=== PATIENT | female | born 1990 | race Caucasian/White ===

== ENCOUNTER → 2016-09-01 | Outpatient (CLI) | payer OTHER ==
[~2016-09-01] MED LIST: CIPR-255 PO; IBUP-103 PO; PRENTAB26 PO
[2016-09-01 11:23] LABS: HEMATOCRIT 33.7 % (37-47)
[2016-09-01 11:24] LABS: URINE APPEARANCE CLEAR (CLEAR); URINE BILIRUBIN NEG (NEG); URINE COLOR YELLOW; URINE EPITHELIAL CELL AUTO >30 /lpf (0-5); URINE NITRITE NEG (NEG); URINE SPECIFIC GRAVITY 1.008 (1.000-1.030); UROBILINOGEN NEG (NEG)
[2016-09-01 11:29] LABS: MANUAL MICROSCOPIC REQUIRED? NO; REVIEW REQ? NO
[2016-09-01 11:47] LABS: GTGD 50 Grams
== END | disposition home or self-care (01) ==
LOC: C.LAB1850 09:56
PROVIDERS: ATTEND Obstetrics & Gynecology
DX: Z34.83 Encounter for supervision of other normal pregnancy, third trimester (principal)

== ENCOUNTER → 2016-10-27 | Outpatient (CLI) | payer OTHER | END | disposition home or self-care (01) | LOC: C.LABSPEC 14:49 | PROVIDERS: ATTEND Obstetrics & Gynecology | DX: Z34.83 Encounter for supervision of other normal pregnancy, third trimester (principal) ==

== ENCOUNTER 2016-12-01 13:26 | Inpatient (IN) | payer OTHER ==
[~2016-12-01] VITALS: Ht 167.6 cm; Wt 71.4 kg
[2016-12-01] MEDS ORDERED: LACTATED RINGER'S 1000ML 1,000 ML IV SCH (13:51)
[2016-12-01] MEDS ORDERED: LACTATED RINGER'S 1000ML 1,000 ML IV PRN (13:51)
[2016-12-01] MEDS ORDERED: BUPIVACAINE 0.25% 30 ML VIAL ONE (14:39)
[2016-12-01] MEDS ORDERED: EpHEDrine SULFATE INJ 50 MG/ML AMP ONE (14:39)
[2016-12-01] MEDS ORDERED: FENTANYL CITRATE INJ 50 MCG/1 ML 2 ML VIAL ONE (14:40)
[2016-12-01] MEDS ORDERED: FENTANYL 2MCG/ML ROPIV 1.25MG/ML 100ML BAG EPI ONE (14:40)
[2016-12-01 14:55] LABS: HEMATOCRIT 40.3 % (37-47); MEAN CELL VOLUME 90.8 fL (80-100); MEAN CORPUSCULAR HEMOGLOBIN 30.6 pg (25-34); MEAN CORPUSCULAR HGB CONC 33.7 g/dl (32-36); MEAN PLATELET VOLUME 9.2 fL (7.4-10.4); PLATELET COUNT 211 K/uL (130-400); RED BLOOD COUNT 4.44 M/uL (4.2-5.4); WHITE BLOOD COUNT 12.08 K/uL (4.8-10.8)
[2016-12-01] MEDS ORDERED: NALOXONE HCL INJ 1 MG in SODIUM CHLORIDE 0.9% 1000ML 1,000 ML IV PRN (15:29)
[2016-12-01] MEDS ORDERED: LACTATED RINGER'S 1000ML 500 ML IV PRN (15:29)
[2016-12-01] MEDS ORDERED: DiphenhydrAMINE HCL 50 MG/ML VIAL IV PRN (15:30)
[2016-12-01] MEDS ORDERED: NALOXONE HCL INJ 0.4 MG/1 ML VIAL/CARP IV PRN (15:30)
[2016-12-01] MEDS ORDERED: FENTANYL 2MCG/ML ROPIV 1.25MG/ML 100ML BAG EPI PRN (15:30)
[2016-12-01] MEDS ORDERED: NALBUPHINE HCL INJ 10 MG/ML AMP IV PRN (15:30)
[2016-12-01] MEDS ORDERED: EpHEDrine SULFATE INJ 50 MG/ML AMP IV PRN (15:30)
[2016-12-01 15:39] VITALS: Ht 167.6 cm; Wt 71.4 kg
[2016-12-01] MEDS ORDERED: OXYTOCIN 30 UNITS/500ML NSS IV ONE (16:15)
[2016-12-01] MEDS ORDERED: HYDROCORTISONE ACETATE 25 MG SUPP PR PRN (17:45)
[2016-12-01] MEDS ORDERED: OXYTOCIN 30 UNITS/500ML NSS IV PRN (17:45)
[2016-12-01] MEDS ORDERED: SUPERCREAM 0.870 % 15GM JAR EXT PRN (17:45)
[2016-12-01] MEDS ORDERED: OXYCODONE/ACETAMINOPHEN 5-325 TAB PO PRN (17:45)
[2016-12-01] MEDS ORDERED: BENZOCAINE 20% AER SPR 82.5 GM CAN EXT PRN (17:45)
[2016-12-01] MEDS ORDERED: LANOLIN OINT EXT PRN ×2 (17:45)
--- NOTE | 2016-12-01 18:44 | Anesthesia Procedure Note ---
Anesthesia Epidural Removal Nt Date & Time December 01, 2016 at 18:44 Vital Signs Pain Intensity: 0.0 Notes Mental Status: alert / awake / arousable, participated in evaluation Nausea / Vomiting: adequately controlled Pain: adequately controlled Airway Patency, RR, SpO2: stable & adequate BP & HR: stable & adequate Hydration State: stable & adequate Neuraxial Anesthesia: was administered, sensory block is resolving Anesthetic Complications: no major complications apparent, pt satisfied with anesthetic care Epidural: removed without complications, with tip intact
[2016-12-01 20:45] VITALS: BP 110/71; PULSE 80; TEMP 36.6
[2016-12-01 23:20] VITALS: BP 95/60; PULSE 70; TEMP 36.5
--- NOTE | 2016-12-01 23:49 | DELIVERY SUMMARY ---
DATE OF OPERATION: 12/01/2016 VAGINAL DELIVERY SUMMARY DELIVERY SURGEON: Dr. Myrick. PREDELIVERY DIAGNOSES: 1. A 26-year-old G6, P2-0-3-2, at 41 weeks, 0 days. 2. Spontaneous labor. POSTDELIVERY DIAGNOSIS: Same. ANESTHESIA: Epidural. COMPLICATIONS: None. ESTIMATED BLOOD LOSS: 300 mL. FINDINGS: Viable male , Apgars 8 and 9. Weight pending. Please see nursery notes. No lacerations. DESCRIPTION OF DELIVERY: The patient progressed to complete with epidural analgesia. She then spontaneously vaginally delivered a viable male from the left occiput anterior position. The head delivered. No nuchal cord was noted. The anterior followed by the posterior shoulder were delivered followed by the body. The baby was placed on mother's abdomen and a spontaneous cry was heard. Delayed cord clamping was undertaken. The cord was doubly clamped and cut. Cord blood was obtained. The placenta then was delivered spontaneously, intact with a 3-vessel cord. The Pitocin was given. The uterus became. The uterus and vagina were swept of all clots and debris. The cervix, vagina and perineum were inspected and no lacerations were noted. Sponge and instrument counts were correct x2 at the conclusion of the delivery. The patient and the baby tolerated the delivery well. I attest to the content of the Intraoperative Record and any orders documented therein. Any exceptio ns are noted below.
[2016-12-02 04:40] VITALS: BP 112/68; PULSE 75; TEMP 37
[2016-12-02 06:13] LABS: HEMATOCRIT 35.9 % (37-47)
--- NOTE | 2016-12-02 07:23 | Progress Note ---
Subjective December 02, 2016. Subjective conversation w/ patient, physical exam Ambulation: ambulating normally Voiding: no voiding problems Passing Gas: Yes Diet Tolerance: Regular Diet Lochia: Moderate Feeding Type: Breast Feeding Review of Systems Constitutional: No problem reported Respiratory: No problem reported Cardiac: No problem reported Breast: No problem reported Abdomen: No problem reported Female : No problem reported Objective Vital Signs Date Time Temp Pulse Resp B/P Pulse Ox O2 Delivery O2 Flow Rate FiO2 12/01/16 23:20 36.5 70 18 95/60 12/01/16 23:20 Room Air 12/01/16 20:45 36.6 80 20 110/71 Physical Exam General Appearance: NO APPARENT DISTRESS Respiratory/Chest: no respiratory distress Cardiovascular: regular rate, rhythm Abdomen: non tender, soft Fundus: Firm Extremities: normal inspection Laboratory Results Last 24 Hours Test 12/01/16 14:40 White Blood Count 12.08 K/uL Red Blood Count 4.44 M/uL Hemoglobin 13.6 g/dL Hematocrit 40.3 % Mean Corpuscular Volume 90.8 fL Mean Corpuscular Hemoglobin 30.6 pg Mean Corpuscular Hemoglobin Concent 33.7 g/dl RDW Standard Deviation 45.8 fL RDW Coefficient of Variation 13.8 % Platelet Count 211 K/uL Mean Platelet Volume 9.2 fL Assessment and Plan Post- Day#: 1 Continue Routine Care: PPD#1 doing well. Continue routine care.
[2016-12-02 08:00] VITALS: BP 109/70; PULSE 73; TEMP 37.1
[2016-12-02] MEDS: IBUPROFEN 600 MG TAB PO PRN ×2 (08:23→15:37)
[2016-12-02 12:17] VITALS: BP 94/60; PULSE 62; TEMP 36.3
[2016-12-02 17:00] VITALS: BP 115/70; PULSE 76; TEMP 37
[2016-12-02] MEDS: DOCUSATE SODIUM 100 MG CAP PO SCH (19:35)
[2016-12-02] MEDS ORDERED: BISACODYL 5 MG TABEC PO SCH (20:00)
[2016-12-02 23:35] VITALS: BP 113/69; PULSE 63; TEMP 37.1
[2016-12-03] MEDS: IBUPROFEN 600 MG TAB PO PRN (06:23)
--- NOTE | 2016-12-03 06:39 | Discharge Instructions ---
Discharge Instructions Date of Service December 02, 2016. Admission Reason for Admission: Check Labor Discharge Discharge Diagnosis / Problem: s/p vaginal delivery Discharge Goals Goal(s): Routine recovery after delivery Medications Continue Dispensed Medications: supercream, dermaplast, tucks, lansinoh Activity Recommendations Activity Limitations: as noted below . Instructions / Follow-Up Instructions / Follow-Up ACTIVITY RECOMMENDATIONS: * Gradual return to full activity over the next 2-3 weeks. * No lifting - nothing heavier than baby over the next 2-3 weeks. * Do not engage in vigorous exercise, sexual activity or sports until cleared by your physician. * Do not drive or operate any motorized equipment until cleared by your physician. * You may shower/bathe daily. MEDICATIONS: For discomfort or pain, you may use Acetaminophen (Tylenol), Ibuprofen (Advil), or Naproxen (Aleve) following the package directions. For constipation you may use Colace following the package directions. BREAST CARE: If you are not breast feeding: * Wear a supportive bra 24 hours a day for one to two weeks. * Avoid stimulating your breasts and nipples as much as possible during the first few weeks after delivery. * When taking a shower, have the warm water hit your back, not breasts. * When your breasts feel full, apply ice packs. Usually three to four times a day helps ease the discomfort. * Take a mild pain medication (Tylenol / Motrin) when you are uncomfortable. If breast feeding: * Use breast milk to lubricate nipples. Lansinoh cream may be used for sore nipples. You do not need to remove cream prior to breast feeding. If using a different brand of cream, check the label for directions regarding removal of cream prior to nursing. * Wear a supportive bra. * If having problems with breasts or breast feeding, call a network security consultant or your health care provider. EPISIOTOMY CARE: After delivery, if you have an episiotomy (stitches), the following steps will ease discomfort and aid healing. * For the first 24 hours after delivery, place ice packs next to your episiotomy to help reduce swelling. * After the first 24 hour-period, sitz baths, either portable or in the tub, are suggested. A shower with a shower arm sprayed over the episiotomy may be comforting. * Vicki care should be done after each voiding and bowel movement. Squirt warm water from a plastic bottle over the perineum (region of the body between the anus and urinary opening) and pat dry. * Use Dermoplast to ease discomfort. Shake container. [place] directly over the episiotomy. Place a Tucks on a clean sanitary pad next to your episiotomy. SPECIAL CARE INSTRUCTIONS: When you are discharged from the hospital, it is important for you to follow the instructions listed below: * During the first week at home, you should be able to care for yourself and your baby. In addition, the usual light household activities are encouraged. * Limit your activities to the way you feel. Do not try to clean the house or move furniture. Be sensible. * If you actively engage in sports and have done so up until the time of your delivery, you may resume these activities as soon as you feel able. This may take up to one month or even longer. Use good judgment. * Continue to take your vitamins for at least six weeks after the of your baby. * Your diet need not be limited unless you were on a special diet before your delivery. Breast-feeding mothers need around 2500 calories per day and at least 64-80 ounces of fluid per day (8 to 10 glasses). * You should eat foods from the four major food groups. Crash diets or fad diets are to be avoided. Eating lean meats, fresh fruits and vegetables, low-fat dairy products, high fiber foods and a regular exercise program, will help you get back to your pre- weight without putting your health at risk. * Constipation is sometimes a problem after delivery. Take a mild laxative as needed. If breast feeding, Milk of Magnesia is acceptable to use. You may use a suppository or Fleets enema if no episiotomy. * A daily shower or tub bath is suggested. Be sure to thoroughly and gently dry the perineum. * A bloody vaginal discharge will usually continue until around four weeks post . A small amount of bleeding may continue for as long as six weeks. Vaginal discharge changes from the bright red bleeding after delivery to pink then brownish and finally yellowish-pink before becoming white and disappearing. * Bleeding may increase with activity. Your first period may come in 4-8 weeks. If you are breast feeding, your period may be delayed even longer. * [place] (sex) can begin whenever both you and your partner feel comfortable and do not have any form of genital infection. It is recommended that you wait at least six weeks for internal and external healing to occur. If you have questions, please talk to your health care practitioner. A condom should be used to prevent infection and . * Foreplay, gentle intercourse and lubrication is very important the first several times to prevent pain. A water-based lubricant such as K-Y jelly or Astroglide may be used. * If you have RH negative blood and your baby is RH positive, you will receive RHOGAM by injection prior to discharge. The nurse will give you a card to keep with you that has the date and place that you received RHOGAM after delivery. * During your care, you had a Rubella screen done to check for the presence of rubella antibodies in your blood. If your test was negative, you will receive a Rubella vaccine prior to discharge. This vaccine may cause a fever, soreness at the injection site and flu-like symptoms. If these symptoms persist, notify your health care practitioner. is not advised for one month after a Rubella vaccine. * Verbalizes understanding of car seat law as reviewed with patient nursing. * Car Seat hand-out given and reviewed with patient by nursing. * Shaken baby information reviewed with patient by nursing. Call you doctor if: * Heavy bleeding (saturating several pads an hour) or passing clots the size of your fist. * A fever >101 degrees F (38.3 degrees C) on two occasions four hours apart and /or chills. * Unusual pain in the pelvic or vaginal areas. * "Baby Blues" lasting longer than two weeks. If you have any questions or concerns, call your health care practitioner at . FOLLOW UP VISIT: * Please call the office at to schedule a 6 week examination. It is important you keep this appointment. It is important for you to make arrangements for either yearly or twice yearly check-ups thereafter. Current Hospital Diet Patient's current hospital diet: Regular OB Diet Discharge Diet Recommended Diet: Regular Diet Pending Studies Studies pending at discharge: no Medical Emergencies . Who to Call and When: Medical Emergencies: If at any time you feel your situation is an emergency, please call 311 immediately. . Non-Emergent Contact Non-Emergency issues call your: Critical Care Registered Nurse Call Non-Emergent contact if: you have a fever, temperature is above 101 . . "Provider Documentation" section prepared by Amrit Francois. . VTE Core Measure Inpt VTE Proph given/why not?: Treatment not indicated
--- NOTE | 2016-12-03 06:41 | Progress Note ---
Subjective December 03, 2016. Subjective conversation w/ patient, physical exam, lab review Ambulation: ambulating normally Voiding: no voiding problems Passing Gas: Yes Diet Tolerance: Regular Diet Lochia: Small Feeding Type: Breast Feeding Pain: denies pain Comment: Patient was seen at the bedside. No acute event overnight. Review of Systems Constitutional: No fever Respiratory: No cough, No shortness of breath Cardiac: No chest pain Breast: No breast lump Abdomen: No nausea, No pain, No vomiting Female : No dysuria, No urinary frequency Denies headache Objective Vital Signs Date Time Temp Pulse Resp B/P Pulse Ox O2 Delivery O2 Flow Rate FiO2 12/02/16 23:35 37.1 63 16 113/69 Room Air 12/02/16 23:35 Room Air 12/02/16 17:00 Room Air 12/02/16 17:00 37.0 76 16 115/70 Room Air 12/02/16 12:17 36.3 62 18 94/60 Room Air 12/02/16 08:00 37.1 73 18 109/70 Room Air 12/02/16 07:30 Room Air Physical Exam General Appearance: WELL-APPEARING, WD/WN, NO APPARENT DISTRESS Respiratory/Chest: chest non-tender, lungs clear, normal breath sounds, no respiratory distress Cardiovascular: regular rate, rhythm Abdomen: normal bowel sounds, non tender, soft Fundus: Firm, Relation to Umbilicus (1cm below U) Extremities: non-tender, no pedal edema, no calf tenderness Medications Current Inpatient Medications Medications (Trade) Dose Ordered Sig/Jose F Route Start Time Stop Time Status Last Admin Dose Admin Lactated Ringer's 1,000 ml @ 125 mls/hr Q8H IV 12/01/16 13:51 12/03/16 13:50 12/01/16 14:48 125 MLS/HR Lactated Ringer's (Lr 1000ml) 1,000 ml @ 999 mls/hr Q1H1M PRN IV 12/01/16 13:51 12/31/16 13:50 12/01/16 14:49 999 MLS/HR Oxytocin (Pitocin IV) 30 units UD PRN IV 12/01/16 17:45 12/31/16 17:44 12/01/16 18:19 30 UNITS Benzocaine (Dermoplast Aero Spr) 1 appln PRN PRN EXT 12/01/16 17:45 12/31/16 17:44 Cocaine HCl (Supercream 0.870% Cr) BID PRN EXT 12/01/16 17:45 12/15/16 17:44 Hydrocortisone Acetate (Anusol Hc Supp) 25 mg BID PRN IL 12/01/16 17:45 12/31/16 17:44 Lanolin (Lanolin Oint) PRN PRN EXT 12/01/16 17:45 12/31/16 17:44 Ibuprofen (Motrin Tab) 600 mg Q4H PRN PO 12/01/16 17:45 12/31/16 17:44 12/03/16 06:23 600 MG Oxycodone/ Acetaminophen (Percocet 5-325mg Tab) 1 tab Q4H PRN PO 12/01/16 17:45 12/15/16 17:44 Docusate Sodium (coLACE CAP) 100 mg BID PO 12/01/16 20:00 12/31/16 19:59 12/02/16 19:35 100 MG Assessment and Plan Post- Day#: 2 Continue Routine Care: Resident Physician Supervision Note: I interviewed and examined the patient. Discussed with Dr. Francois and agree with findings and plan as documented in the note. Any exceptions or clarifications are listed here: [None] Documented By: Aster Shine A/P: This is a 26 y/o female, , s/p normal vaginal delivery. She is ambulating and clinically stable to discharge. - Vital signs are reviewed and WNL (Tmax 37.1 ) - Last Hgb 12.1 - Blood type AB+, GBS neg, Rubella Immune - No signs of depression. - Routine care - Discussed resting, feeding, pain control, mastitis, control, follow up in 6 weeks and reasons to call sooner, if necessary. - Continue with pain medication as needed, and continue vitamins. - Encourage breast feeding and educate about breast feeding - Patient understands and keen for home. - Plan to discharge home
[2016-12-03] MEDS: DOCUSATE SODIUM 100 MG CAP PO SCH (08:08)
[2016-12-03 08:15] VITALS: BP 116/76; PULSE 77; TEMP 37.2
[2016-12-03 13:00] VITALS: BP_DIAS 76; PULSE 77; TEMP 37.2
== END 2016-12-03 13:55 | disposition home or self-care (01) | DRG 775 ==
LOC: C.LD 13:26 → C.OPB 13:26 → C.LD 13:52 → C.OPB 13:52 → C.OBG 20:14
PROVIDERS: ADMIT Obstetrics & Gynecology; ATTEND Obstetrics & Gynecology
PROC: 10E0XZZ Delivery of Products of Conception, External Approach (ICD-10-PCS; principal; 2016-12-01)
DX: O48.0 Post-term pregnancy (principal); O26.23 Pregnancy care for patient with recurrent pregnancy loss, third trimester; Z37.0 Single live birth; Z3A.41 41 weeks gestation of pregnancy

== ENCOUNTER 2017-09-18 19:34 | Emergency (ER) | payer OTHER ==
[~2017-09-18] VITALS: Ht 168.9 cm; Wt 56.5 kg
[~2017-09-18 19:34] MED LIST changes: -CIPR-255 PO; -IBUP-103 PO
[2017-09-18 19:45] VITALS: TEMP 36.8; Ht 168.9 cm; Wt 56.5 kg
[2017-09-18] MEDS ORDERED: ONDANSETRON INJ 2 MG/ML 2 ML VIAL IV STA (19:52)
[2017-09-18 20:11] LABS: BASO % 0.2 %; BASO ABS # 0.02 K/uL (0-0.2); EOS % 2.9 %; EOS ABS # 0.24 K/uL (0-0.5); HEMATOCRIT 38.5 % (37-47); HEMOGLOBIN 13.2 g/dL (12.0-16.0); IG# 0.01 K/uL (0.00-0.02); LYMPH % 34.8 %; LYMPH ABS # 2.84 K/uL (1.2-3.4); MEAN CELL VOLUME 88.5 fL (80-100); MEAN CORPUSCULAR HEMOGLOBIN 30.3 pg (25-34); MEAN CORPUSCULAR HGB CONC 34.3 g/dl (32-36); MEAN PLATELET VOLUME 8.9 fL (7.4-10.4); MONO ABS # 0.49 K/uL (0.11-0.59); NEUT ABS # 4.56 K/uL (1.4-6.5); PLATELET COUNT 312 K/uL (130-400); RED CELL DISTRIBUTION WIDTH CV 12.3 % (11.5-14.5); RED CELL DISTRIBUTION WIDTH SD 39.4 fL (36.4-46.3); WHITE BLOOD COUNT 8.16 K/uL (4.8-10.8)
[2017-09-18 20:27] LABS: ALBUMIN 3.9 gm/dl (3.4-5.0); CALCIUM 8.6 mg/dl (8.5-10.1); CREATININE 0.67 mg/dl (0.60-1.20); POTASSIUM 3.2 mmol/L (3.5-5.1)
[2017-09-18 20:30] LABS: TOTAL PROTEIN 7.7 gm/dl (6.4-8.2)
--- NOTE | 2017-09-18 21:20 | DIAGNOSTIC IMAGING REPORT ---
APPENDICEAL ULTRASOUND CLINICAL HISTORY: Right lower quadrant abdominal pain COMPARISON STUDY: No previous studies for comparison. FINDINGS: The appendix was not visualized. There are no evidence of focal fluid collections. IMPRESSION: Nonvisualization the appendix. This examination is therefore nondiagnostic in regards to acute appendicitis Electronically signed by: Zeyad Doherty M.D. 09/18/2017 9:18 PM Dictated Date/Time: 09/18/2017 9:18 PM
--- NOTE | 2017-09-18 21:22 | DIAGNOSTIC IMAGING REPORT ---
ADDENDUM Addendum: The patient was brought back for endovaginal scanning. On endovaginal scanning, neither a yolk sac nor a pole were visualized. Again, ultrasonographic follow-up is recommended to confirm a viable . Electronically signed by: Zeyad Doherty M.D. 09/18/2017 9:56 PM Dictated Date/Time: 09/18/2017 9:55 PM ORIGINAL REPORT ECTOPIC ULTRASOUND CLINICAL HISTORY: Right lower quadrant abdominal pain COMPARISON STUDY: No previous studies for comparison. FINDINGS: The uterus measured 8.7 x 6.2 x 7.3 cm. There is a 7.5 mm gestational sac. No pole or yolk sac was visualized. The right ovary measured 4.2 x 2.3 x 2.5 cm. There is a probable 1.7 cm corpus luteum. The left ovary measured 2.9 x 1.6 x 2 cm. There is no free fluid. The patient refused endovaginal scanning IMPRESSION: 1. 7.5 mm intrauterine gestational sac. No pole or yolk sac was visualized. Ultrasound follow-up is recommended to confirm a viable . 2. The patient refused endovaginal scanning Electronically signed by: Zeyad Doherty M.D. 09/18/2017 9:21 PM Dictated Date/Time: 09/18/2017 9:19 PM
[2017-09-18 22:02] VITALS: BP 116/59; PULSE 82; O2SAT 98
--- NOTE | 2017-09-19 01:33 | EMERGENCY ROOM VISIT NOTE ---
History Report prepared by July: Gm Sosa Under the Supervision of: Dr. Gm Boston M.D. First contact with patient: 19:50 Chief Complaint: ABDOMINAL PAIN Stated Complaint: LOWER RIGHT ABD PAIN History of Present Illness The patient is a 26 year old female who presents to the Emergency Room with complaints of worsening lower abdominal pain located near her naval area that began yesterday. She states that the pain radiates towards her right lower abdomen. She describes the pain as a dull and aching. She states that pain is intermittently sharp as well. Patient states that the pain is worsened with touch. She has associated symptoms of diarrhea and low-grade temperatures. She states her most recent temperature was 99.3. Patient denies vomiting, abnormal vaginal bleeding, or discharge. Pertinent past medical history includes a cholecystectomy in 2012. She denies a history of health problems. She denies any chance of . Source of History: patient Onset: Yesterday Position: abdomen (Lower) Symptom Intensity: moderate Quality: ache, sharp, dull Timing: worsening Modifying Factors (Worsening): other (Touch) Associated Symptoms: + fevers, + diarrhea, No vomiting, No urinary symptoms Note: Patient denies abnormal vaginal discharge and bleeding. Review of Systems See HPI for pertinent positives & negatives. A total of 10 systems reviewed and were otherwise negative. Past Medical & Surgical Medical Problems: (1) Spontaneous onset of labor Surgical Problems: (1) History of cholecystectomy Family History Diabetes mellitus Hypertension Social History Smoking Status: Never Smoker Alcohol Use: none Drug Use: none Marital Status: Housing Status: lives with family Occupation Status: employed Current/Historical Medications No Active Prescriptions or Reported Meds Allergies Coded Allergies: Bacitracin (Verified Allergy, Unknown, ?, 12/01/16) Neomycin (Verified Allergy, Unknown, ?, 12/01/16) Polymyxin B (Verified Allergy, Unknown, ?, 12/01/16) Uncoded Allergies: NARCOTICS (Adverse Reaction, Unknown, Chest discomfort and SOB, 09/25/14) Reported by PT. Physical Exam Vital Signs Date Time Temp Pulse Resp B/P (MAP) Pulse Ox O2 Delivery O2 Flow Rate FiO2 09/18/17 22:02 82 18 116/59 98 Room Air 09/18/17 19:45 36.8 97 18 114/77 98 Room Air Physical Exam Constitutional: Vital signs reviewed. Eyes: Pupils are equal round reactive to light. Conjunctiva are noninjected. ENT: Pharynx is clear without erythema or exudate. Mucous membranes are moist. Neck supple without meningeal signs. Respiratory: Clear to auscultation bilaterally. Breath sounds are equal bilaterally. Cardiovascular: Regular rate and rhythm. No rubs or gallops. GI: Soft, nondistended with tenderness in the right lower quadrant and infraumbilical region. No guarding. Bowel sounds are present. Musculoskeletal: No peripheral edema. No CVA tenderness. Integumentary: No cyanosis. Neurological: The patient is awake and alert. No focal deficits. Psychiatric: Normal affect. Medical Decision & Procedures ER Provider Diagnostic Interpretation: Radiology results as stated below per my review and the radiologist's interpretation: APPENDICEAL ULTRASOUND CLINICAL HISTORY: Right lower quadrant abdominal pain COMPARISON STUDY: No previous studies for comparison. FINDINGS: The appendix was not visualized. There are no evidence of focal fluid collections. IMPRESSION: Nonvisualization the appendix. This examination is therefore nondiagnostic in regards to acute appendicitis Electronically signed by: Zeyad Doherty M.D. 09/18/2017 9:18 PM Dictated Date/Time: 09/18/2017 9:18 PM ECTOPIC ULTRASOUND CLINICAL HISTORY: Right lower quadrant abdominal pain COMPARISON STUDY: No previous studies for comparison. FINDINGS: The uterus measured 8.7 x 6.2 x 7.3 cm. There is a 7.5 mm gestational sac. No pole or yolk sac was visualized. The right ovary measured 4.2 x 2.3 x 2.5 cm. There is a probable 1.7 cm corpus luteum. The left ovary measured 2.9 x 1.6 x 2 cm. There is no free fluid. The patient refused endovaginal scanning IMPRESSION: 1. 7.5 mm intrauterine gestational sac. No pole or yolk sac was visualized. Ultrasound follow-up is recommended to confirm a viable . 2. The patient refused endovaginal scanning Electronically signed by: Zeyad Doherty M.D. 09/18/2017 9:21 PM Dictated Date/Time: 09/18/2017 9:19 PM Laboratory Results 09/18/17 20:00 Red Blood Count 4.35, Mean Corpuscular Volume 88.5, Mean Corpuscular Hemoglobin 30.3, Mean Corpuscular Hemoglobin Concent 34.3, Mean Platelet Volume 8.9, Neutrophils (%) (Auto) 56.0, Lymphocytes (%) (Auto) 34.8, Monocytes (%) (Auto) 6.0, Eosinophils (%) (Auto) 2.9, Basophils (%) (Auto) 0.2, Neutrophils # (Auto) 4.56, Lymphocytes # (Auto) 2.84, Monocytes # (Auto) 0.49, Eosinophils # (Auto) 0.24, Basophils # (Auto) 0.02 09/18/17 20:00 Test 09/18/17 20:00 White Blood Count 8.16 K/uL (4.8-10.8) Red Blood Count 4.35 M/uL (4.2-5.4) Hemoglobin 13.2 g/dL (12.0-16.0) Hematocrit 38.5 % (37-47) Mean Corpuscular Volume 88.5 fL (80-100) Mean Corpuscular Hemoglobin 30.3 pg (25-34) Mean Corpuscular Hemoglobin Concent 34.3 g/dl (32-36) Platelet Count 312 K/uL (130-400) Mean Platelet Volume 8.9 fL (7.4-10.4) Neutrophils (%) (Auto) 56.0 % Lymphocytes (%) (Auto) 34.8 % Monocytes (%) (Auto) 6.0 % Eosinophils (%) (Auto) 2.9 % Basophils (%) (Auto) 0.2 % Neutrophils # (Auto) 4.56 K/uL (1.4-6.5) Lymphocytes # (Auto) 2.84 K/uL (1.2-3.4) Monocytes # (Auto) 0.49 K/uL (0.11-0.59) Eosinophils # (Auto) 0.24 K/uL (0-0.5) Basophils # (Auto) 0.02 K/uL (0-0.2) RDW Standard Deviation 39.4 fL (36.4-46.3) RDW Coefficient of Variation 12.3 % (11.5-14.5) Immature Granulocyte % (Auto) 0.1 % Immature Granulocyte # (Auto) 0.01 K/uL (0.00-0.02) Urine Color YELLOW Urine Appearance CLEAR (CLEAR) Urine pH 5.5 (4.5-7.5) Urine Specific [place] 1.016 (1.000-1.030) Urine Protein NEG (NEG) Urine Glucose (UA) NEG (NEG) Urine Ketones TRACE (NEG) Urine Occult Blood NEG (NEG) Urine Nitrite NEG (NEG) Urine Bilirubin NEG (NEG) Urine Urobilinogen NEG (NEG) Urine Leukocyte Esterase TRACE (NEG) Urine WBC (Auto) 1-5 /hpf (0-5) Urine RBC (Auto) 5-10 /hpf (0-4) Urine Hyaline Casts (Auto) 1-5 /lpf (0-5) Urine Epithelial Cells (Auto) >30 /lpf (0-5) Urine Bacteria (Auto) NEG (NEG) Urine Test POS (NEG) Anion Gap 7.0 mmol/L (3-11) Est Creatinine Clear Calc Drug Dose 113.5 ml/min Estimated GFR () 140.6 Estimated GFR (Non- 121.3 BUN/Creatinine Ratio 15.3 (10-20) Calcium Level 8.6 mg/dl (8.5-10.1) Total Bilirubin 0.9 mg/dl (0.2-1) Direct Bilirubin 0.2 mg/dl (0-0.2) Aspartate Amino Transf (AST/SGOT) 21 U/L (15-37) Alanine Aminotransferase (ALT/SGPT) 25 U/L (12-78) Alkaline Phosphatase 84 U/L (45-117) Total Protein 7.7 gm/dl (6.4-8.2) Albumin 3.9 gm/dl (3.4-5.0) Lipase 93 U/L (73-393) Human Chorionic Gonadotropin, Quant 5480 mIU/mL Laboratory results as reviewed by me. Medications Administered Medications (Trade) Dose Ordered Sig/Jose F Route Start Time Stop Time Status Last Admin Dose Admin Ondansetron HCl (Zofran Inj) 4 mg NOW STAT IV 09/18/17 19:52 09/18/17 20:14 DC 09/18/17 20:04 4 MG ED Course 1944: The patient was evaluated in room C11B. A complete history and physical exam was performed. 1951: Zofran Inj 4mg IV 2004: Patient's test came back positive. Patient states that her last period was 3 weeks ago and it was early. She states that she normally has irregular periods. Patient's CT scan was cancelled. 2131: I reassessed patient I reviewed the test results with her including the ultrasound. The lawn care technician had noted that the patient refused transvaginal ultrasound. The results of the ultrasound showed intrauterine gestational sac but no yolk sac or pole. I did question the patient regarding why she refused the transvaginal ultrasound. She stated to me that she did not refuse the ultrasound. She stated to me that the tech told her that she saw everything that she needed to see and asked her if she wanted to have the transvaginal ultrasound. The patient stated she declined because the tech told her that she saw what she needed to see. I did explain to her that we did need the trans-vaginal ultrasound as an IUP was not established on this exam. I did bring this interaction to the attention of Dr. Doherty the radiology. He stated that in reviewing the ultrasound it did appear that she did have a double decidual sign which likely indicated IUP. The tech called me back and stated that she told the patient that she saw what she needs to see with the transabdominal ultrasound and asked if she wanted to have the transvaginal ultrasound as ordered by myself. The patient declined at that point based on what the tech told her. I explained to the tech that the patient should not be told that the ultrasound was sufficient as we have not established an IUP with the trans-abdominal ultrasound. I requested that she take the patient back for a transvaginal ultrasound. 9: Upon reevaluation, the patient appeared to have improvement of her symptoms. I discussed tonight's findings with her. I informed the patient that she [facility] the next 48 hours for a repeat HCG. She verbalized agreement of the treatment plan. She was discharged home. Medical Decision This is a 26-year-old female who presents with lower abdominal pain. Differential diagnosis includes appendicitis, perforation, abscess, inflammatory bowel disease, irritable bowel syndrome, ectopic , ovarian cyst. I did perform a limited focused review of portions of the patient 's old chart on the electronic medical record. The patient has had no recent pertinent visits to this hospital. Patient's blood type is AB+. I did evaluate the patient as noted above. Patient is presenting with lower abdominal pain. She is tender below the umbilicus toward the right side. IV access was established. She denied any chance of . I did order and personally review the patient's urinalysis as described above. Urinalysis did not show any signs of infection but her urine test was positive. I did order and review the patient's blood work as noted in the electronic medical record. Beta-hCGs over 5400. Her white blood cell count is not elevated. I did order an ultrasound of the abdomen and pelvis. I did review the images myself as well as the radiology report as described above. The right lower quadrant ultrasound was nondiagnostic and the appendix was not visualized. Pelvic ultrasound showed a gestational sac but no definite evidence of IUP. I did talk to the radiologist who stated that he thought he saw a double decidual sign consistent with an IVP. I did discuss the case with the air conditioning mechanic industrial cone sewer who recommended the patient follow-up in 48 hours in the office and have a repeat beta-hCG. I did discuss the test results with the patient. I did explain to her that I could not completely rule out appendicitis but that my current suspicion was low. I did offer to do an MRI of the abdomen pelvis but she and her preferred to wait at this time which I felt was reasonable. She understands that we could not completely rule out appendicitis or ectopic at this time. I therefore told her to have a very low threshold to return should she have any worsening symptoms or develop any new symptoms such as vaginal bleeding or fever. She was otherwise advised to follow-up at 48 hours for repeat serum beta-hCG and follow-up with obstetrics. She was discharged in good condition. Medication Reconcilliation Current Medication List: was personally reviewed by me Blood Pressure Screening Patient's blood pressure: Normal blood pressure Blood pressure disposition: Did not require urgent referral Consults Time Called: 2209 Consulting Physician: Dr. Shine - [facility]EE[facility] Returned Call: [id number] [facility] We discussed the patient and her results. Dr. Shine states that the patient should followup with her in the next 48 hours to get a repeat HCG. The patient will be further evaluated by Dr. Shine. Impression Primary Impression: Abdominal pain during in first trimester Scribe Attestation The scribe's documentation has been prepared under my direct and personally reviewed by me in its entirety. I confirm that the note above accurately reflects all work, treatment, procedures, and medical decision making performed by me. Departure Information Dispostion Home / Self-Care Prescriptions No Active Prescriptions or Reported Meds Referrals No Doctor, Assigned (PCP) Forms HOME CARE DOCUMENTATION FORM, IMPORTANT VISIT INFORMATION Patient Instructions My [facility] Additional Instructions You have been examined and treated today on an emergency basis only. This is not a substitute for, or an effort to provide, complete comprehensive medical care. It is impossible to recognize and treat all injuries or illnesses in a single emergency department visit. It is therefore important that you follow up closely with Dr. Shine of [facility] on Wednesday. Call as soon as possible for an appointment. He will need a repeat beta-hCG blood test. Return for worsening symptoms or if you develop fever, vomiting, vaginal bleeding, lightheadedness or any other concerning symptoms.
== END 2017-09-18 22:32 | disposition home or self-care (01) ==
LOC: C.EDB 19:35 → C.EDC 22:32
DX: O26.891 Other specified pregnancy related conditions, first trimester (principal); R10.31 Right lower quadrant pain; Z3A.00 Weeks of gestation of pregnancy not specified; Z83.3 Family history of diabetes mellitus; Z82.49 Family history of ischemic heart disease and other diseases of the circulatory system; Z88.1 Allergy status to other antibiotic agents; Z88.8 Allergy status to other drugs, medicaments and biological substances; Z88.5 Allergy status to narcotic agent

== ENCOUNTER → 2017-09-20 | Outpatient (CLI) | payer OTHER ==
--- NOTE | 2017-10-15 07:46 | CODING QUERY NO DIAGNOSIS ---
TREATMENT RENDERED WITHOUT A DIAGNOSIS Dr. Shine, To promote full compliance with coding requirements relating to patient care, physician participation is requested in all cases of claim processor uncertainty. Please assist us with providing a diagnosis/symptom for the test(s) below: A diagnosis/symptom was not documented on your Order. A valid diagnosis/symptom is required to bill all insurances. Please remember that we are unable to code a diagnosis of rule out, probable, possible, questionable, or suspected. Tests that require a diagnosis: * BETA HCG QUANTITATIVE DIAGNOSIS: DATE OF SERVICE: 09/20/17 Provider Signature: Date: Thank you Justin Silva [facility] Information Management Once completed, please kindly fax back to [phone] For questions please call [phone]
--- NOTE | 2017-10-20 06:06 | EDITING REQUIRED CODING QUERY ---
TREATMENT RENDERED WITHOUT A DIAGNOSIS Dr. Boston, To promote full compliance with coding requirements relating to patient care, physician participation is requested in all cases of key account director uncertainty. Please assist us with providing a diagnosis/symptom for the test(s) below: A diagnosis/symptom was not documented on your Order. A valid diagnosis/symptom is required to bill all insurances. Please remember that we are unable to code a diagnosis of rule out, probable, possible, questionable, or suspected. Tests that require a diagnosis: * BETA HCG QUANTITATIVE DIAGNOSIS:Abdominal pain in ; possible ectopic DATE OF SERVICE: 09/20/17 Provider Signature: Mika Boston Date: ____10/23/17 Thank you Justin Silva [facility] Information Management Once completed, please kindly fax back to [phone] For questions please call [phone]
== END | disposition home or self-care (01) ==
LOC: C.LAB1850 11:10
PROVIDERS: ATTEND Emergency Medicine
DX: O26.899 Other specified pregnancy related conditions, unspecified trimester (principal); R10.9 Unspecified abdominal pain

== ENCOUNTER → 2017-09-22 | Outpatient (CLI) | payer OTHER | END | disposition home or self-care (01) | LOC: C.LAB1850 11:20 | PROVIDERS: ATTEND Obstetrics & Gynecology | DX: Z32.00 Encounter for pregnancy test, result unknown (principal) ==

== ENCOUNTER → 2017-09-24 | Outpatient (CLI) | payer OTHER | END | disposition home or self-care (01) | LOC: C.LAB1850 13:05 | PROVIDERS: ATTEND Obstetrics & Gynecology | DX: O20.0 Threatened abortion (principal); Z3A.00 Weeks of gestation of pregnancy not specified ==

== ENCOUNTER → 2017-09-27 | Outpatient (CLI) | payer OTHER | END | disposition home or self-care (01) | LOC: C.LABPVFM 10:26 | PROVIDERS: ATTEND Obstetrics & Gynecology | DX: O20.0 Threatened abortion (principal); Z3A.00 Weeks of gestation of pregnancy not specified ==

== ENCOUNTER → 2017-10-04 | Outpatient (CLI) | payer OTHER | END | disposition home or self-care (01) | LOC: C.LABPVFM 10:59 | PROVIDERS: ATTEND Obstetrics & Gynecology | DX: O20.0 Threatened abortion (principal) ==

== ENCOUNTER → 2017-10-12 | Outpatient (CLI) | payer OTHER | END | disposition home or self-care (01) | LOC: C.LABPVFM 10:05 | PROVIDERS: ATTEND Obstetrics & Gynecology | DX: O02.1 Missed abortion (principal) ==

== ENCOUNTER → 2017-10-20 | Outpatient (CLI) | payer OTHER | END | disposition home or self-care (01) | LOC: C.LABPVFM 14:15 | PROVIDERS: ATTEND Obstetrics & Gynecology | DX: O02.1 Missed abortion (principal) ==

== ENCOUNTER → 2017-10-28 | Outpatient (CLI) | payer OTHER | END | disposition home or self-care (01) | LOC: C.LABPVFM 13:57 | PROVIDERS: ATTEND Obstetrics & Gynecology | DX: O02.1 Missed abortion (principal) ==

== ENCOUNTER → 2017-11-05 | Outpatient (CLI) | payer OTHER | END | disposition home or self-care (01) | LOC: C.LABPVFM 13:45 | PROVIDERS: ATTEND Obstetrics & Gynecology | DX: O02.1 Missed abortion (principal) ==

== ENCOUNTER → 2017-11-17 | Outpatient (CLI) | payer OTHER | END | disposition home or self-care (01) | LOC: C.LABPVFM 14:25 | PROVIDERS: ATTEND Obstetrics & Gynecology | DX: O02.1 Missed abortion (principal) ==